=== PATIENT | male | born 1950 | race Caucasian/White ===

== ENCOUNTER → 2022-03-19 10:37 | Outpatient (CLI) | payer MEDICARE, BC, SELFPAY ==
[2022-03-19 12:44] LABS: BUN Creatinine Ratio 19.6 (6-22); Blood Urea Nitrogen 18 mg/dL (9-20); Calcium 9.2 mg/dL (8.4-10.2); Carbon Dioxide 29 mmol/L (22-32); Chloride 98 mmol/L (98-107); Estimated Glomerular Filt Rate > 60 mL/min (>60); Glucose 108 mg/dL (80-110); HEMOLYSIS < 15 (0-50); Potassium 3.8 mmol/L (3.4-5.1); Sodium 137 mmol/L (137-145)
== END ==
PROVIDERS: PCP Family Medicine; Referring Provider Surgery; Visit Provider Surgery
DX: K43.9 Ventral hernia without obstruction or gangrene (principal)
CPT/HCPCS: 36415; 80048; 99214

== ENCOUNTER → 2022-03-25 11:16 | Outpatient (CLI) | payer MEDICARE, BC, SELFPAY ==
--- NOTE | 2022-03-25 11:17 | DI.CT.S_ITS ---
PROCEDURE: CT ABDOMEN PELVIS W CON INDICATIONS: Abdominal wall hernia. History of spigelian and left inguin TECHNIQUE: After the administration of intravenous contrast, axial sections acquired from the lung bases to the pubic symphysis. Coronal and sagittal reformats were performed. For radiation dose reduction, the following was used: automated exposure control, adjustment of mA and/or kV according to patient size. COMPARISON: [facility], CT, ABDOMEN/PELVIS WITH CONTRAST, 03/10/2016, 10:11. FINDINGS: Lower thorax: The lung bases are clear. Heart size normal. No hiatal hernia. Liver: Normal in size and attenuation. No contour deformity present. Biliary system: No calcified cholelithiasis or pericholecystic inflammation. No intra or extrahepatic bile duct dilatation. Pancreas: Unremarkable without mass or inflammation evident. Spleen: Normal in size and density. Adrenals: Normal morphology and density. Reproductive system: Unremarkable as visualized. Urinary system: Irregular enhancing mass lesion in the upper pole the right kidney measures 4.1 x 3.7 cm. Additional smaller right renal cysts present. No hydronephrosis. Gastrointestinal system: The bowel is unremarkable without evidence of bowel obstruction or inflammation. The stomach appears unremarkable. Appendix: No findings to suggest acute appendicitis. Peritoneal spaces: No mesenteric or retroperitoneal adenopathy. No free air. No free fluid. Vasculature: Aortic atherosclerotic vascular calcification noted without evidence of aneurysm. Abdominal wall: Periumbilical ventral hernia now contains fluid density material which probably reflects fat necrosis. Additional left spigelian hernia contains fluid and fat without bowel involvement. Right inguinal hernia noted as well containing fat but no bowel involvement. Musculoskeletal: Normal bone mineralization. Degenerative disc disease and arthropathy noted in lower lumbar spine. No acute fractures. IMPRESSION: 1. Left-sided spigelian hernia has increased in size compared to the prior now contains fat and fluid/soft tissue density without bowel involvement. 2. Umbilical hernia also contains soft tissue density, consistent with fat necrosis. No bowel involvement. Stable right inguinal hernia. 3. Irregular solid mass lesion in the upper pole the right kidney is concerning for renal cell carcinoma. Recommend urology consult Approved by: Mau Kingsley M.D. on 03/25/2022 at 17:45
== END ==
PROVIDERS: PCP Family Medicine; Referring Provider Surgery; Visit Provider Surgery
DX: K43.9 Ventral hernia without obstruction or gangrene (principal); N28.9 Disorder of kidney and ureter, unspecified; N28.1 Cyst of kidney, acquired; K42.9 Umbilical hernia without obstruction or gangrene; K40.90 Unilateral inguinal hernia, without obstruction or gangrene, not specified as recurrent; M51.36 Other intervertebral disc degeneration, lumbar region; M47.816 Spondylosis without myelopathy or radiculopathy, lumbar region
CPT/HCPCS: 74177; Q9967

== ENCOUNTER → 2022-04-22 07:44 | Outpatient (CLI) | payer MEDICARE, BC, SELFPAY ==
--- NOTE | 2022-04-22 07:45 | DI.CT.S_ITS ---
PROCEDURE: CT ABDOMEN RENAL PROTOCOL INDICATIONS: Right upper pole renal mass TECHNIQUE: Optional 5 mm thick noncontrast images acquired from the diaphragm to the iliac crests. After the administration of intravenous contrast, 5 mm thick images again acquired from the diaphragm to the iliac crests in the arterial and urographic phases. 5 mm thick coronal and sagittal reformats were then acquired. For radiation dose reduction, the following was used: automated exposure control, adjustment of mA and/or kV according to patient size. COMPARISON: [facility], CT, CT ABDOMEN PELVIS W CON, 03/25/2022, 13:15. [facility], CT, ABDOMEN/PELVIS WITH CONTRAST, 03/10/2016, 10:11. FINDINGS: Image quality: Excellent. Lung bases: Lung bases are clear. Heart size is normal. Dense coronary artery calcification. Genitourinary: There is a heterogeneous enhancing mass within the upper pole cortex of the right kidney measuring 3.7 x 4.2 x 4.1 cm. The mass bulges into the renal sinus fat obstructing one of the upper pole calices. An exophytic cyst measuring 3.1 cm arises anterior to the mass, and there are two posterior upper pole cysts, one hyperdense, and one mildly complicated and septated also in the right upper pole. 1.2 cm hyperdense cyst arises from the anterior lower pole right kidney. No other solid masses. The left kidney in both ureters are normal. Other solid organs: Liver is normal in size and enhancement. Gallbladder is normal . Biliary system is non dilated. Pancreas enhances normally. Spleen is normal in size and enhancement. No adrenal nodules. Peritoneum and bowel: Unenhanced bowel loops are normal in wall thickness and caliber. Partially imaged sigmoid diverticulosis. Normal appendix. No free fluid or air. Nodes and vessels: No perirenal adenopathy. No retroperitoneal or mesenteric adenopathy. Abdominal aorta is normal caliber with moderate atherosclerotic calcification. Inferior vena cava is normal. Bones: No suspicious bone lesions. There is bridging osseous spurring at both sacroiliac joints, degenerative facet arthropathy in the low lumbar spine and L1 vertebral body hemangioma. Miscellaneous: Prior umbilical hernia repair. IMPRESSION: 1. 4.2 cm cortically based right upper pole renal mass encroaching on the renal sinus. 2. No adenopathy or evidence of metastatic disease in the abdomen. 3. Other mildly complicated right renal cysts including a chronic septated cyst and two hyperdense cysts. Dictated by: Shelia Garcia M.D. on 04/22/2022 at 15:10 Approved by: Shelia Garcia M.D. on 04/22/2022 at 15:27
[2022-04-22 09:33] LABS: BUN Creatinine Ratio 16.7 (6-22); Blood Urea Nitrogen 16 mg/dL (9-20); Calcium 9.1 mg/dL (8.4-10.2); Carbon Dioxide 32 mmol/L (22-32); Chloride 98 mmol/L (98-107); Estimated Glomerular Filt Rate > 60 mL/min (>60); Glucose 120 mg/dL (80-110); HEMOLYSIS < 15 (0-50); Potassium 3.3 mmol/L (3.4-5.1); Sodium 138 mmol/L (137-145)
== END ==
PROVIDERS: PCP Family Medicine; Referring Provider Urology; Visit Provider Urology
DX: Z01.812 Encounter for preprocedural laboratory examination (principal); N28.89 Other specified disorders of kidney and ureter; N28.1 Cyst of kidney, acquired
CPT/HCPCS: 36415; 74170; 80048; Q9967

== ENCOUNTER → 2022-05-14 08:32 | Outpatient (CLI) | payer MEDICARE, BC, SELFPAY | PROVIDERS: PCP Family Medicine; Referring Provider Urology; Visit Provider Urology | DX: N28.89 Other specified disorders of kidney and ureter (principal) ==

== ENCOUNTER → 2022-05-14 08:33 | Outpatient (CLI) | payer MEDICARE, BC, SELFPAY ==
--- NOTE | 2022-05-14 08:36 | DI.MRI.S_ITS ---
PROCEDURE: MR ABDOMEN WO/W CON INDICATIONS: Right renal lesion TECHNIQUE: Coronal HASTE through abdomen and pelvis; axial 2D FLASH in- and [id number] (with and without fat saturation), and breath-hold T2 FSE from the hepatic dome to the bottom of the kidneys. Coronal HASTE MR urogram of kidneys and bladder. Dynamic coronal VIBE during IV gadolinium administration; postgadolinium axial VIBE or 2D FLASH with fat saturation from the hepatic dome through the kidneys. COMPARISON: [facility], CT, CT ABDOMEN RENAL PROTOCOL, 04/22/2022, 9:52. [facility], CT, ABDOMEN/PELVIS WITH CONTRAST, 03/10/2016, 10:11. FINDINGS: Image quality: Excellent. Genitourinary system: Kidneys are normal in size. No hydronephrosis or hydroureter. Right kidney superior pole heterogeneous T2 hyperintense lesion measuring 3.8 x 3.6 cm, (09/08). There is a focus of intrinsic T1 hyperintensity within this lesion which could represent proteinaceous debris or hemorrhage. There is isointense T2 signal at this location. No convincing enhancement within this component. However, elsewhere the lesion demonstrates heterogeneous enhancement, (). No convincing restricted diffusion. There are several T2 hyperintense right renal cysts. No significant left renal cysts. Other solid organs: Liver: No focal lesion. Tiny T2 hyperintense cyst. Gallbladder: Decompressed. Bile ducts: No dilatation. Pancreas: No pancreatic ductal dilatation. Spleen: No splenomegaly. Adrenal glands: No nodule. Nodes and vessels: No enlarged nodes. No aneurysm. No renal artery or vein filling defect. Atherosclerotic plaque. Bowel and peritoneum: No dilated loops of bowel. No ascites. Lung bases: No pleural effusion. Bones and soft tissues: Small T2 hyperintense cysts adjacent to the right hip, (15/51). Likely small perilabral cysts. No enhancement. L1 and T4 intraosseous hemangiomas. No aggressive appearing lesion. IMPRESSION: 1. Right kidney superior pole solid and cystic lesion with enhancement. This is concerning for renal cell carcinoma until proven otherwise. 2. No hydronephrosis. 3. No enlarged lymph nodes. Dictated by: Serg Kilpatrick M.D. on 05/14/2022 at 12:12 Approved by: eSrg Kilpatrick M.D. on 05/14/2022 at 12:28
--- NOTE | 2022-05-14 08:36 | DI.NM.S_ITS ---
PROCEDURE: NM RENAL FUNCTION W LASIX RADIOPHARMACEUTICAL: 10.2 mCi Tc-99m MAG3 IV and 40 mg furosemide IV. INDICATIONS: Right renal lesion, differential function TECHNIQUE: The patient was hydrated orally before the examination was begun. After intravenous administration of Tc-99m MAG3, posterior abdominal radionuclide angiogram and sequential (1 minute each frame) renal images were obtained. A time-activity curve for each kidney was generated and analyzed. To evaluate for obstruction, the patient was given 40 mg furosemide via slow intravenous injection after the start of the examination. Sequential images were obtained for up to an additional 20 minutes. COMPARISON: [facility], CT, CT ABDOMEN RENAL PROTOCOL, 04/22/2022, 9:52. FINDINGS: Perfusion: There is normal vascular flow to both kidneys. Morphology: Both kidneys are normal in size and shape. There is decreased activity in the superior pole of the right kidney. No dilated collecting systems are seen. The ureters and bladder fill with tracer, and appear normal. Function: Both kidneys demonstrate normal cortical tracer uptake, with byit-it-qzmr activity ranging from 3 to 5 minutes. The right kidney contributes 43% of total renal function. The left kidney contributes 57% of total renal function. Lasix stimulation: After diuretic administration, there is prompt clearance of tracer activity from the renal collecting systems in both kidneys. The half-time of emptying of tracer activity from the right pelvicaliceal system is 9.6 minutes. The half-time of emptying from the left pelvicaliceal system is 10 minutes. Normal emptying half-times are less than 10 minutes; borderline ranges are from 10 to 20 minutes. IMPRESSION: 1. Decreased activity in the superior pole of the right kidney. 2. Right kidney contributes 43% of total renal function; left kidney contributes 57% of total renal function. 3. No evidence for urinary obstruction. Dictated by: Rocky Piper M.D. on 05/14/2022 at 11:15 Approved by: Rocky Piper M.D. on 05/14/2022 at 11:19
== END ==
PROVIDERS: PCP Family Medicine; Referring Provider Urology; Visit Provider Urology
DX: N28.89 Other specified disorders of kidney and ureter (principal)
CPT/HCPCS: 74183; 78708; A9562

== ENCOUNTER → 2022-06-22 09:07 | Outpatient (CLI) | payer MEDICARE, BC, SELFPAY ==
[2022-06-22 10:16] LABS: COVID19 -Nasal RAPID Negative (Negative)
== END ==
PROVIDERS: PCP Family Medicine; Visit Provider Surgery
DX: Z20.822 Contact with and (suspected) exposure to COVID-19 (principal); Z01.812 Encounter for preprocedural laboratory examination
CPT/HCPCS: 87635; C9803

== ENCOUNTER 2022-06-23 10:14 | Day surgery (SDC) | payer MEDICARE, BC, SELFPAY ==
[2022-06-18 10:37] VITALS: BMI 28.1
[2022-06-23] VITALS (11 sets, daily range): BP systolic 110–128; BP diastolic 65–80; PULSE 74–86; RESP 16–20; TEMP 36–36.8; O2SAT 94–97; BMI 28.3
[2022-06-23] MEDS: LACTATED RINGERS 1,000 ML 100 ML IV ×2 (11:25→12:51)
--- NOTE | 2022-06-23 11:41 | PM.PREOP ---
Pre-operative Note Interval Note History & Physical reviewed/Exam performed by Physician: Yes Changes to H&P: No
[2022-06-23] MEDS: CEFAZOLIN 2 GM/100 ML PREMIX 100 ML IV (12:10)
--- NOTE | 2022-06-23 12:17 | SUR.OPER ---
Supine on padded OR bed, head on pillow, arms secured on padded arm boards at <90 degrees abduction, legs uncrossed, safety belt at thigh, tape over blanket over lower legs.
[2022-06-23] MEDS: BUPIVACAINE 0.5% W/ EPI (PF) 30 ML VIAL INJ (12:31)
[2022-06-23] MEDS: ONDANSETRON 4 MG/2 ML INJ IV (13:23)
[2022-06-23] MEDS: HYDROMORPHONE 2 MG INJ IV ×2 (13:24→13:33)
[2022-06-23] MEDS: OXYCODONE IR 5 MG TABLET PO (13:40)
--- NOTE | 2022-06-23 14:12 | PM.OP.1 ---
Operative Date/Time/Diagnoses Date of procedure: 06/23/22 Time of procedure: 14:16 Pre-op diagnosis: Recurrent left spigelian hernia Post-op diagnosis: same Procedure & Clinicians Procedure: Open repair of recurrent left spigelian hernia Same procedure as scheduled: Yes Indications: Symptomatic reducible left spigelian Surgeon: Dustin Miguel Click Yes if Unassisted: Yes Anesthesia Type: General Operative Notes Findings: 3 cm fascial defect containing omentum. Specimen(s): none sent Estimated Blood Loss (mL): 50 Procedure in detail: Patient was brought to the operating room placed supine on the table. Bilateral lower extremity compression devices were applied. General anesthesia was induced and he was intubated with an endotracheal tube. He received 2 g of Ancef prior to skin incision. He was prepped and draped in sterile fashion. Time-out was performed. He previous left abdominal wall incision lateral to the rectus muscle and inferior to the umbilicus was incised. The subcutaneous tissue was divided. The external oblique was opened. Beneath the external oblique there was a piece of mesh that was no longer adequately covering the fascial defect. The mesh was sharply excised. The fascial defect was approximately 3 cm in maximal diameter. The hernia sac was opened and it contained viable omentum. The sac was then closed with running Vicryl suture. A 3 x 6 inch piece of flat macro porous mesh was then placed over the defect with several cm of overlap in all directions. It lay under physiologic tension and was secured to the internal oblique with interrupted Ethibond suture. Hemostasis was checked. The external oblique was then reapproximated in interrupted fashion using Ethibond suture over the mesh. Subcutaneous tissue was closed with Vicryl skin with running Monocryl followed by Dermabond. Patient tolerated the procedure well and was extubated and transferred to recovery in stable condition Complications: none Post-operative Condition: stable Disposition: same day surgery
== END 2022-06-23 14:42 | disposition home or self-care (01) ==
PROVIDERS: PCP Family Medicine; Referring Provider Surgery; Visit Provider Surgery
PROC: (CPT 49615; principal; 2022-06-23 11:45)
DX: K43.9 Ventral hernia without obstruction or gangrene (principal); I10 Essential (primary) hypertension
CPT/HCPCS: 49615; 82962; C1781; J0330; J0690; J1170; J2405; J2704; J3010

== ENCOUNTER → 2022-07-29 08:31 | Outpatient (CLI) | payer MEDICARE, BC, SELFPAY ==
--- NOTE | 2022-07-29 08:33 | DI.MRI.S_ITS ---
PROCEDURE: MR ABDOMEN RENAL PROTOCOL COMPARISON: [facility], CT, CT ABDOMEN RENAL PROTOCOL, 04/22/2022, 9:52. [facility], MR, MR ABDOMEN WO/W CON, 05/14/2022, 10:34. TECHNIQUE: CORONAL HASTE THROUGH THE ABDOMEN, AXIAL T2 FLAIR FLASH IN AND OUT OF PHASE, WITHOUT AND WITH FAT SATURATION, BREATH HOLD T2 FAST SPIN ECHO FROM HEPATIC DOME TO THE ILIAC CRESTS. CORONAL HASTE MR UROGRAM OF KIDNEYS AND BLADDER. DYNAMIC CORONAL VIBE DURING IV ELSY MENSTRUATIONS, POST ELSY AXIAL VIBE OR T2 FLASH WITH FAT SATURATION FROM HEPATIC DOME THROUGH KIDNEYS. INDICATIONS: Kidney CA FINDINGS: Kidneys: A partially exophytic mass arising from the anterior upper pole of the right kidney measures 4.4 x 3.9 cm and contains a 2.1 cm T1 hyperintense portion. T2 imaging demonstrates mixed intermediate and high T2 signal with several septations in a spoke wheel pattern. Postcontrast, there is definite enhancement of several of the T2 intermediate portions including septations. Multi lobulated cystic mass and partially exophytic unilocular cyst arise from the posteromedial upper pole right kidney. No enhancement. Partially thick 1.3 cm cyst arising from the anterior lower pole right kidney. No left renal lesions. No hydronephrosis. Other solid organs: The liver, gallbladder, pancreas, spleen, biliary tree, and adrenal glands appear normal. Nodes and vessels: No retroperitoneal or perirenal adenopathy. No visible mesenteric mass. Stomach and bowel: Normal to the extent bowel loops are visualized. Bones and soft tissues: There is a fat containing left lower quadrant probable spigelian hernia. There is in capsulated fluid within the herniated fatty mass. Vertebral bodies demonstrate several T1 and T2 hyperintense vertebral body lesions most consistent with hemangiomas. Small nonenhancing nodule is present adjacent to the left pubic symphysis, probably arising from the symphysis, present previously. IMPRESSION: 1. Relatively stable size of enhancing multi cystic right upper pole renal mass most consistent with renal cell carcinoma, with differential diagnosis of oncocytoma. Interval decrease in size of an adjacent cystic component. 2. No visible adenopathy. 3. Redemonstrated vertebral body hemangiomas. Dictated by: Shelia Garcia M.D. on 07/29/2022 at 16:15 Approved by: Shelia Garcia M.D. on 07/29/2022 at 16:44
== END ==
PROVIDERS: PCP Family Medicine; Referring Provider Urology; Visit Provider Urology
DX: N28.89 Other specified disorders of kidney and ureter (principal); D18.09 Hemangioma of other sites
CPT/HCPCS: 74183; A9579

== ENCOUNTER → 2022-12-17 08:18 | Outpatient (CLI) | payer MEDICARE, BC, SELFPAY ==
--- NOTE | 2022-12-17 | DI.MRI.S_ITS ---
PROCEDURE: MR ABDOMEN WO/W CON INDICATIONS: Cyst of kidney, acquired TECHNIQUE: Coronal HASTE through abdomen and pelvis; axial 2D FLASH in- and [id number] (with and without fat saturation), and breath-hold T2 FSE from the hepatic dome to the bottom of the kidneys. Coronal HASTE MR urogram of kidneys and bladder. Dynamic coronal VIBE during IV gadolinium administration; postgadolinium axial VIBE or 2D FLASH with fat saturation from the hepatic dome through the kidneys. COMPARISON: [facility], CT, ABDOMEN/PELVIS WITH CONTRAST, 03/10/2016, 10:11. [facility], CT, CT ABDOMEN RENAL PROTOCOL, 04/22/2022, 9:52. [facility], MR, MR ABDOMEN RENAL PROTOCOL, 07/29/2022, 9:23. FINDINGS: Image quality: Excellent. Solid organs: Liver: No focal lesion. Tiny cyst is unchanged. Gallbladder: Unremarkable. Bile ducts: Unremarkable. Pancreas: Unremarkable. Spleen: Unremarkable. Adrenal glands: Unremarkable. Kidneys: Kidneys are normal in size. No hydronephrosis. Right kidney superior pole cystic and solid lesion measuring 3.9 x 3.6 cm, (09/08), previously 3.9 x 3.6 cm, and 3.8 x 3.5 cm on 04/22/2022 and more remotely 2.9 x 2.5 cm on 03/10/2016. There is a small component of intrinsic T1 hyperintense signal. There is internal enhancement. No restricted diffusion. Right mid kidney medial cyst cluster measuring 3 cm, (09/11), unchanged. No enhancement. Small T2 hyperintense cyst at the inferior pole of the right kidney. No significant cyst or mass in the right kidney. Nodes and vessels: No enlarged lymph nodes. No aortic aneurysm. Atherosclerotic plaque. Bowel and peritoneum: No dilated loops of bowel seen. Diverticulosis. Lung bases: No pleural effusion. Bones and soft tissues: L1 and L4 intraosseous hemangioma, unchanged. No aggressive appearing lesion. IMPRESSION: 1. Right kidney superior pole cystic and solid enhancing lesion measuring 3.9 cm, not significantly changed compared to April 2022 but increased in size compared to 2015. 2. No adenopathy. Dictated by: Serg Kilpatrick M.D. on 12/17/2022 at 10:57 Approved by: Serg Kilpatrick M.D. on 12/17/2022 at 11:14
== END ==
PROVIDERS: PCP Family Medicine; Referring Provider Urology; Visit Provider Urology
DX: N28.1 Cyst of kidney, acquired (principal); N28.89 Other specified disorders of kidney and ureter
CPT/HCPCS: 74183

== ENCOUNTER → 2023-06-15 10:28 | Outpatient (CLI) | payer MEDICARE, BC, SELFPAY ==
--- NOTE | 2023-06-15 10:31 | DI.MRI.S_ITS ---
PROCEDURE: MR ABDOMEN RENAL PROTOCOL INDICATIONS: Complex right renal cyst TECHNIQUE: Coronal HASTE through abdomen and pelvis; axial 2D FLASH in- and [id number] (with and without fat saturation), and breath-hold T2 FSE from the hepatic dome to the bottom of the kidneys. Coronal HASTE MR urogram of kidneys and bladder. Dynamic coronal VIBE during IV gadolinium administration; postgadolinium axial VIBE or 2D FLASH with fat saturation from the hepatic dome through the kidneys. COMPARISON: [facility], CT, CT ABDOMEN RENAL PROTOCOL, 04/22/2022, 9:52. [facility], MR, MR ABDOMEN WO/W CON, 05/14/2022, 10:34. [facility], MR, MR ABDOMEN WO/W CON, 12/17/2022, 9:17. [facility], MR, MR ABDOMEN RENAL PROTOCOL, 07/29/2022, 9:23. FINDINGS: Image quality: Diagnostic. Kidneys and Ureters: Multiloculated, multi septated, heterogeneous cystic lesion arising from the upper pole right kidney measures 4.7 by 4.2 x 3.5 cm, not significantly changed in the past year, increased size previously measuring 2.6 cm compared to 03/10/16. It contains both cystic, hemorrhagic, and solid enhancing components. Morphology is spoke wheel appearance on coronal imaging. A few cortical cysts arise from the medial upper and anterior lower pole. No enhancing lesions in the left kidney. OTHER: Lung bases: Unremarkable. Liver: No solid mass. Gallbladder: No gallstones or wall thickening. Biliary ducts: No biliary dilation. Pancreas: No ductal dilation. Spleen: Size is within normal limits. Adrenal Glands: No adrenal nodules. Stomach and Bowel: Stomach and small bowel loops are normal caliber. Visible loops of colon are normal. Peritoneum: No abnormal intraperitoneal fluid. No free air. Ventral Wall: No hernia. Abdominal Nodes: No retroperitoneal or mesenteric adenopathy by size criteria. Vessels: Aorta and inferior vena cava are normal in size. Bones: No aggressive osseous abnormality. IMPRESSION: 1. No significant size change in an enhancing cystic and solid right upper pole renal mass in the past year. Findings remain concerning for slow growing malignancy. 2. No adenopathy or visible bone lesions. Dictated by: Shelia Garcia M.D. on 06/15/2023 at 12:04 Approved by: Shelia Garcia M.D. on 06/15/2023 at 12:19
== END ==
PROVIDERS: PCP Family Medicine; Referring Provider Urology; Visit Provider Urology
DX: N28.1 Cyst of kidney, acquired (principal); N28.89 Other specified disorders of kidney and ureter
CPT/HCPCS: 74183

== ENCOUNTER → 2023-12-19 10:37 | Outpatient (CLI) | payer MEDICARE, BC, SELFPAY ==
--- NOTE | 2023-12-19 10:38 | DI.MRI.S_ITS ---
PROCEDURE: MR ABDOMEN RENAL PROTOCOL INDICATIONS: Follow-up right complex cyst TECHNIQUE: Coronal HASTE through abdomen and pelvis; axial 2D FLASH in- and [id number] (with and without fat saturation), and breath-hold T2 FSE from the hepatic dome to the bottom of the kidneys. Coronal HASTE MR urogram of kidneys and bladder. Dynamic coronal VIBE during IV gadolinium administration; postgadolinium axial VIBE or 2D FLASH with fat saturation from the hepatic dome through the kidneys. COMPARISON: [facility], CT, ABDOMEN/PELVIS WITH CONTRAST, 03/10/2016, 10:11. [facility], CT, CT ABDOMEN RENAL PROTOCOL, 04/22/2022, 9:52. [facility], MR, MR ABDOMEN RENAL PROTOCOL, 06/15/2023, 10:37. FINDINGS: Image quality: Diagnostic. Kidneys and Ureters: -Right kidney superior pole cystic lesion measuring 4 x 3.5 cm, (09/07), unchanged, and more remotely 4 x 3.[address] 04/22/2022. Increased in size compared to 2016 were measured 1.4 cm. Cyst demonstrates heterogeneous T2 hyperintense signal, scattered foci of intrinsic T1 hyperintense signal, and enhancing component, (). -Right kidney superior pole medial cystic lesion measuring 3.1 x 1.6 cm, (09/11), unchanged, and more remotely 3.2 x [address] 04/22/2022. Slightly increased in size compared to 2016. Thin septations. No convincing enhancement. -Right kidney inferior pole simple appearing cyst measuring 1.2 cm is unchanged. No significant left renal cysts. No hydronephrosis. OTHER: Lung bases: Unremarkable. Liver: No solid mass. Gallbladder: No gallstones or wall thickening. Biliary ducts: No biliary dilation. Pancreas: No ductal dilation. Spleen: Size is within normal limits. Adrenal Glands: No adrenal nodules. Stomach and Bowel: Normal colonic caliber, without significant wall thickening. Peritoneum: No abnormal intraperitoneal fluid. No free air. Ventral Wall: No hernia. Abdominal Nodes: No retroperitoneal or mesenteric adenopathy by size criteria. Vessels: Aorta and inferior vena cava are normal in size. Renal arteries and veins are patent. Bones: No aggressive osseous abnormality. L1 and L4 intraosseous hemangiomas. IMPRESSION: 1. Right kidney superior pole complex cystic and solid mass measuring 4 cm is not significantly changed. 2. Right kidney superior pole complicated cyst measuring 3.1 cm is unchanged. 3. No adenopathy. Dictated by: Serg Kilpatrick M.D. on 12/19/2023 at 12:44 Approved by: Serg Kilpatrick M.D. on 12/19/2023 at 13:03
== END ==
LOC: MRI 10:38
PROVIDERS: PCP Family Medicine; Referring Provider Urology; Visit Provider Urology
DX: N28.1 Cyst of kidney, acquired (principal); N28.89 Other specified disorders of kidney and ureter
CPT/HCPCS: 74183; A9579

== ENCOUNTER → 2024-07-05 09:46 | Outpatient (CLI) | payer MEDICARE, BC, SELFPAY ==
--- NOTE | 2024-07-05 09:49 | DI.MRI.S_ITS ---
PROCEDURE: MR ABDOMEN RENAL PROTOCOL INDICATIONS: Follow-up right complex renal cyst TECHNIQUE: Coronal HASTE through abdomen and pelvis; axial 2D FLASH in- and [id number] (with and without fat saturation), and breath-hold T2 FSE from the hepatic dome to the bottom of the kidneys. Coronal HASTE MR urogram of kidneys and bladder. Dynamic coronal VIBE during IV gadolinium administration; postgadolinium axial VIBE or 2D FLASH with fat saturation from the hepatic dome through the kidneys. COMPARISON: [facility], MR, MR ABDOMEN RENAL PROTOCOL, 12/19/2023, 11:06. [facility], MR, MR ABDOMEN RENAL PROTOCOL, 06/15/2023, 10:37. FINDINGS: Image quality: Diagnostic. Kidneys and Ureters: No hydronephrosis. No left-sided complex cystic or solid mass. Several small bilateral simple renal cortical cysts are again noted. The right-sided anterior upper complex renal solid and cystic mass lesion appears to have slightly enlarged. When comparing the maximal axial dimension on the most recent prior contrast MR scanning the dimension measured at the same axial level was 5.4 cm and on similar MR scanning 06/15/23 the mass had measured 4.9 cm. It currently measures 5.5 cm. OTHER: Lung bases: Unremarkable. Liver: No solid mass. Gallbladder: No gallstones or wall thickening. Biliary ducts: No biliary dilation. Pancreas: No ductal dilation. Spleen: Size is within normal limits. Adrenal Glands: No adrenal nodules. Stomach and Bowel: Normal colonic caliber, without significant wall thickening. Peritoneum: No abnormal intraperitoneal fluid. No free air. Ventral Wall: No hernia. Abdominal Nodes: No retroperitoneal or mesenteric adenopathy by size criteria. Vessels: Aorta and inferior vena cava are normal in size. Bones: No aggressive osseous abnormality. IMPRESSION: The complex solid and cystic mass lesion located within the anterior upper right renal cortex has slowly enlarged in maximal axial dimension over the 3 most recent sequential contrast-enhanced MR examinations. No metastatic disease has been identified, however. Dictated by: Bienvenido Arroyo M.D. on 07/05/2024 at 12:45 Approved by: Bienvenido Arroyo M.D. on 07/05/2024 at 12:55
== END ==
LOC: MRI 09:47
PROVIDERS: PCP Family Medicine; Referring Provider Urology; Visit Provider Urology
DX: N28.1 Cyst of kidney, acquired (principal); R31.21 Asymptomatic microscopic hematuria
CPT/HCPCS: 74183; A9579